=== PATIENT | female | born 1995 | race Caucasian/White ===

== ENCOUNTER 2016-11-28 17:08 | Emergency (ER) | payer OTHER ==
[~2016-11-28] VITALS: Ht 170.2 cm; Wt 60.0 kg
[2016-11-28 17:22] VITALS: BP 142/89; PULSE 98; RESP 14; O2SAT 99
[2016-11-28] MEDS ORDERED: IBUP800T23 PO (18:40)
[2016-11-28] MEDS ORDERED: BACL10TA PO (18:40)
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
[2016-11-28] MEDS ORDERED: IBUPROFEN 800 MG TAB PO ONE (18:45)
[2016-11-28] MEDS ORDERED: ONDANSETRON ODT 4 MG TAB PO ONE (18:45)
== END 2016-11-28 19:22 | disposition home or self-care (01) ==
LOC: NEPB 17:08
DX: S16.1XXA Strain of muscle, fascia and tendon at neck level, initial encounter (principal); V49.40XA Driver injured in collision with unspecified motor vehicles in traffic accident, initial encounter; Y92.410 Unspecified street and highway as the place of occurrence of the external cause
CPT/HCPCS: 99283; L0150